=== PATIENT | male | born 1950 | race Caucasian/White ===

== ENCOUNTER 2019-11-29 06:29 | Observation (INO) ==
--- NOTE | 2019-11-23 08:56 | Anesthesiology Consultation ---
Date of Service November 23, 2019 Assessment & Plan (1) Encounter for pre-operative examination: - Per assessment on 11/08: Travel screen- Lives in [facility]/retired. [facility] travel for shopping. Uses PPE. No known COVID-19 positive contacts or current COVID-19 related symptoms. Surgeon arranging preop COVID testing. Awaiting results. - PCP office visit: 11/15/19: "Based on physical exam; pt is medically cleared; pending cardiology clearance." - Cardiology note: 11/09/19: "I have reviewed the clinical history, medication and relevant noninvasic testing. Based on these findings, I would consider patient to be moderate risk from a cardiac standpoint." - Preop labs not updated from 03/2019. Will order CBC, BMP, coags, BSG for AM DOS. Chart Review Chart Review: Acceptable Risk for Surgery (pending preop labs AM DOS) and Patient NOT seen in Pre Admission Testing History Surgery Operation Date: 11/29/19 12:45 Proposed Procedures p Left Total Knee Arthroplasty - Satya Peterson DO Height/Weight Height: 5 ft 10 in Weight: 102.512 kg Allergies Allergy/AdvReac Type Severity Reaction Status Date / Time No Known Allergies Allergy Verified 11/09/19 13:48 Medications Home Medications Medication Instructions Recorded Confirmed Last Taken aspirin [Aspir-81] 81 mg PO QAM 03/11/19 11/09/19 Unknown atorvastatin 80 mg PO HS 03/11/19 11/09/19 03/10/19 cholecalciferol (vitamin D3) 1,000 unit PO QAM 03/11/19 11/09/19 Unknown [Vitamin D3] cinnamon bark [Cinnamon] 1,000 mg PO QAM 03/11/19 11/09/19 Unknown lisinopril 2.5 mg PO QAM 03/11/19 11/09/19 03/11/19 metformin 1,000 mg PO BID 03/11/19 11/09/19 03/11/19 metoprolol tartrate 25 mg PO BID 03/11/19 11/09/19 03/11/19 omega 4-fpr-kmh-fish oil [Fish Oil] 1 cap PO HS 03/11/19 11/09/19 Unknown glyburide 2.5 - 5 mg PO BID 11/09/19 11/09/19 Unknown Past Medical History Medical History (Updated 11/23/19 @ 08:49 by Chana Hurtado) CAD (coronary artery disease) cardiac stents (2010- stents x 2, 2013- stent x 1), CABG X2 (2009) Diabetes NIDDM History of high cholesterol Hypothyroid no meds currently/under surveillance Obesity Osteoarthritis Past Family History Family History Mother Family history of lung cancer Past Surgical History Surgical History History of cardiac cath 2010= STENTS X 2 2012= STENT X1 2017= NO STENTS/MEDICAL MANAGEMENT History of cardiac cath 2012 2012 [facility] History of colonoscopy History of heart bypass surgery CABG X 2 (2009) History of hernia surgery DOUBLE HERNIA History of repair of left rotator cuff Social History Smoking Status: Never smoker Do You Dip or Chew Tobacco: No Hx Alcohol Use: Yes Alcohol type: beer alcohol intake frequency: holidays/special occasions only Hx Substance Use: No substance use type: does not use Testing Laboratory Results 03/22/19 HGBA1C 8.2% Electrocardiogram Date: 03/22/19 SR with first degree AVB at 75bpm. Otherwise "normal" ECG. Chest X-Ray Date: 03/22/19 Median sternotomy wires and mediastinal surgical clips. Cardiac silhouette elsy l in size. Lungs and pleural spaces clear. Degenerative changes of the thoracic spine. Diffuse the radiographic skeletal hyperostosis may be present. Surgical clip projects over the lower mediastinum or epigastrium. IMPRESSION: No acute cardiopulmonary disease. Echocardiogram Date: 07/08/16 LVEF 45-50%. Mild LAE. Grade I DD. No significant valvular disease. Stress Test Date: 03/29/18 Type: nuclear (Lexiscan) LVEF 59%. No evidence of stress induced ischemia. No fixed defects seen. Cardiac Catheterization Date: 08/01/16 angiographically significant 2 vessel occlusive CAD. patient grafts to LAD and diagonal arteries. LVEF 40%. "Given present coronary anatomy should be managed medically."
[~2019-11-29 06:29] MED LIST: ACETAMINOPHEN 500 MG TAB PO SCH; CEFAZOLIN 2000MG 2,000 MG/15 ML SYR IV SCH; CeleBREX 200 MG CAP PO SCH; FAMOTIDINE 20 MG TAB PO SCH; GABAPENTIN 300 MG CAP PO SCH; ROPIVACAINE 0.5% HCL/PF 150 MG, BUPIVACAINE 0.5% MPF 30 ML, EPINEPHrine 30MG/30ML (OR U... INSTIL SCH; TRANEXAMIC ACID 1,000 MG **IV Intra-op IV SCH; TRANEXAMIC ACID 1,000 MG **IV Pre-op IV SCH; dexAMETHasone 4 MG TAB PO SCH
[2019-11-29] MEDS ORDERED: MIDAZOLAM HCL 1 MG/ML 2ML VIAL ONE ×2 (06:31→07:14)
[2019-11-29] MEDS ORDERED: fentaNYL citrate 100 MCG/2 ML VIAL ONE ×2 (06:32→07:14)
[2019-11-29] MEDS ORDERED: ONDANSETRON INJ 2 MG/ML 2 ML VIAL IV PRN ×2 (07:13→10:43)
[2019-11-29] MEDS ORDERED: ePHEDrine sulfate 50 MG/ML AMP IV PRN (07:13)
[2019-11-29] MEDS ORDERED: fentaNYL citrate 100 MCG/2 ML VIAL IV PRN (07:13)
[2019-11-29] MEDS ORDERED: ATROPINE SULFATE 0.1 MG/ML 10ML SYR IV PRN (07:13)
[2019-11-29 07:15] LABS: Basophils # (auto) 0.04 K/uL (0-0.2); Basophils % (auto) 0.6 %; Eosinophils # (auto) 0.15 K/uL (0-0.5); Eosinophils % (auto) 2.4 %; Hemoglobin 15.4 g/dL (14.0-18.0); Lymphocytes # (auto) 1.83 K/uL (1.2-3.4); Lymphocytes % (auto) 29.7 %; Mean Corpuscular Hemoglobin 31.4 pg (25-34); Mean Corpuscular Volume 93.7 fL (80-100); Mean Platelet Volume 10.5 fL (7.4-10.4); Monocytes # (auto) 0.49 K/uL (0.11-0.59); Monocytes % (auto) 7.9 %; Neutrophils # (auto) 3.66 K/uL (1.4-6.5); Neutrophils % (auto) 59.4 %; Platelet Count 221 K/uL (130-400); RDW Standard Deviation 44.5 fL (36.4-46.3); Red Blood Count 4.91 M/uL (4.7-6.1); White Blood Count 6.17 K/uL (4.8-10.8)
[2019-11-29] MEDS ORDERED: BUPIVACAINE 0.5 % 5 MG/1 ML PF 10ML VIAL ONE (07:16)
[2019-11-29] MEDS ORDERED: ORTHO JOINT ANESTHETIC ONE (07:17)
[2019-11-29] MEDS ORDERED: BACITRACIN INJ 50,000 UNIT VIAL ONE (07:18)
[2019-11-29 07:23] LABS: INR 1.1 (0.9-1.1); Partial Thromboplastin Ratio 0.9; Partial Thromboplastin Time 25.9 Seconds (21.0-31.0); Prothrombin Time 11.7 Seconds (9.0-12.0)
--- NOTE | 2019-11-29 07:24 | History & Physical Bridge Note ---
Date of Service November 29, 2019 History & Physical Bridge Note I have examined the patient, reviewed the History & Physical and in the interval since the performance of the History & Physical I have noted the following changes of clinical significance: no changes noted
[2019-11-29 07:37] LABS: Mean Corpuscular Hgb Conc 33.5 g/dL (32-36)
[2019-11-29 07:42] LABS: BUN Creatinine Ratio 15.8 (10-20); Creatinine Clr Calc Pharmacy 94.3 ml/min; Est GFR (African American) 102.1; Est GFR (Non-African American) 88.1; Potassium 3.8 mmol/L (3.5-5.1)
--- NOTE | 2019-11-29 09:06 | Operative Report ---
Post Operative Report Pre & Post Diagnosis Operation Date: 11/29/19 09:15 Pre-Op Diagnosis: Unilateral Primary Osteoarthritis, Left Knee Post-Op Diagnosis: Unilateral Primary Osteoarthritis, Left Knee I identified the patient and participated in the time-out.: Yes Procedure Operation Date: 11/29/19 09:15 Actual Procedures p Left Total Knee Arthroplasty(Left)utilizing SN J2 Femur 7 tibia 6 poly 9 pat 35 - Satya Peterson DO Surgeon Satya Peterson DO Sexual Abuse Counsellor mihir COLLAZO Estimated Blood Loss 5 Findings Consistent with Post-Op Diagnosis subchondral scelrosis osteophytes effusion bone on bone Specimens bone and cartilage Drains medium hemovac Anesthesia Type MAC Spinal Regional Complications none Disposition Accompanied Patient To Recovery: No Disposition: Recovery Room Indications patient failed attempts at conservative management in jections rest act modification Description of Procedure After proper prepping and draping of the left lower extremity anterior midline incision was made over the region of the extensor extensor mechanism after meticulous hemostasis was obtained and maintained in subcutaneous tissues a medial parapatellar incision was made The patella was subluxed lateralward the medial lateral gutter were cleaned from any hypertrophic synovitis and scar tissue of the distal femoral block was placed and the distal femoral osteotomy cut was made subsequently the chamfers anterior and posterior osteotomy cuts were made utilizing the 4-in-1 block the tibia was subsequently subluxed anteriorward medial and ateral meniscal remnants were excised in their entirety remnants of the anterior and posterior cruciate ligaments were excised in their entirety excellent exposure of the proximal tibia was obtained the tibial osteotomy guide was placed on the proximal tibial osteotomy cut was made once again the knee was irrigated with copious amounts of sterile saline solution the patella was subsequently everted lateralward thickened scar tissue around the patella was removed the patella was subsequently cut utilizing a freehand technique and was drilled prepared for final preparation and placement of patella socially flexion-extension gaps were checked and the equal and symmetric trials were placed to the appropriate femoral and tibial trials with poly-spacer being placed for equal flexion and extension gaps and full range of motion including extension to 0 and flexion to 140 the trial components after having been taken to recovery range of motion was subsequently removed meticulous hemostasis was obtained and maintained subsequently a knee block injection of joint cocktail including ropivacaine 0.5% 150 mg. Bupivacaine 0.5% epinephrine 1-200,030 mL's toradol 30 mg dexamethasone 4 mg ketamine 10 mg clonidine 100 micrograms normal saline solution 30 mg was infiltrated into the soft tissues of the posterior knee medial lateral gutters and periosteal synovium special attention was paid to protect neurovascular structures at all times subsequently trial components having been removed the knee was irrigated with sterile saline solution. debris was removed the proximal tibia was subsequently prepared and was made ready for the placement of the tibial component tibial component was also cemented and tamped into position the femoral component was subsequently placed and cemented in the position the patellar component was subsequently cemented in position because hemostasis once again obtained and maintained wound having been thoroughly irrigated with debridement and debridement lavage was performed as well as a medial parapatellar incision closed with #1 Vicryl in interrupted fashion subcutaneous was closed with #2 Vicryl skin was closed with skin clips. PA-C was necessary for prepping and drapping as well as wound closure of deep fascia Sub cutaneous tissue and skin and was necessary for the case. A sterile compressive dressing was placed patient was taken to recovery in stable condition of report dictated by Nicholas I attest to the content of the Intraoperative Record and any orders documented therein. Any exceptions are noted below. I attest to the content of the Intraoperative Record and any orders documented therein. Any exceptions are noted below.
[2019-11-29] MEDS ORDERED: LIDOCAINE HCL 2% 2 ML VIAL/AMP(20MG/ML) INFIL ONE (09:43)
[2019-11-29] MEDS ORDERED: PROPOFOL IV EMULSION 10 MG/ML 20 ML VIAL IV ONE (09:43)
[2019-11-29] MEDS ORDERED: ONDANSETRON INJ 2 MG/ML 2 ML VIAL ONE (09:43)
--- NOTE | 2019-11-29 10:07 | XRay Report ---
TWO VIEWS LEFT KNEE CLINICAL HISTORY: Postoperative examination. FINDINGS: AP and crosstable lateral portable views of the left knee are obtained. A left knee arthrop lasty is in near anatomic alignment. There has been undersurface remodeling of the patella. No acute fracture is seen. There are expected postoperative changes around the knee including a surgical drain , soft tissue edema, and subcutaneous gas. IMPRESSION: Expected postoperative changes status post left knee arthroplasty. No acute fracture is s een. ACT 112: Negative or not required by law. Electronically signed by: Jonny Lucia M.D. 11/29/2019 10:05 AM
--- NOTE | 2019-11-29 10:25 | Anesthesiology Progress Note ---
Date of Service November 29, 2019 Anesthesia Post Procedure Vital Signs Vital Signs: Temp Pulse Pulse Resp BP Pulse Ox 11/29/19 10:15 97.5 F L 80 16 109/59 L 93 11/29/19 10:05 78 16 113/62 95 11/29/19 09:55 87 20 109/58 L 94 11/29/19 09:45 83 16 108/60 97 11/29/19 09:38 97.5 F L 80 12 116/59 L 96 11/29/19 06:57 97.9 F 61 18 121/75 98 Transfer of Care Handoff Completed per policy Notes Mental Status: alert / awake / arousable and participated in evaluation Patient Amnestic to Procedure: Yes Nausea / Vomiting: adequately controlled Pain: adequately controlled Airway Patency, RR, SpO2: stable & adequate BP & HR: stable & adequate Hydration State: stable & adequate Neuraxial Anesthesia: was administered and sensory block is resolving Anesthetic Complications: no major complications apparent and Pt Satisfied with anesthetic care
[2019-11-29] MEDS ORDERED: NALOXONE HCL 0.4 MG/1 ML VIAL/CARP IV PRN (10:43)
[2019-11-29] MEDS ORDERED: HYDROmorphone INJ 1 MG/ML SYRINGE IV PRN (10:43)
[2019-11-29] MEDS ORDERED: bisacodyL 10 MG SUPP PR PRN (10:43)
[2019-11-29] MEDS ORDERED: METOCLOPRAMIDE HCL INJ 5 MG/ML 2 ML VIAL IV PRN (10:43)
[2019-11-29] MEDS ORDERED: MAGNESIUM HYDROXIDE SUSP 30 ML UDC PO PRN (10:43)
[2019-11-29] MEDS ORDERED: PHARMACY GLYCEMIC MGMT CONSULT PRN (10:55)
[2019-11-29] MEDS: SODIUM CHLORIDE 0.9% 1000ML 1,000 ML IV SCH ×2 (10:55→20:36)
[2019-11-29] MEDS ORDERED: GLUCAGON FOR INJ 1 MG VIAL IM PRN (11:00)
[2019-11-29] MEDS ORDERED: CARBOHYDRATES FOR HYPOGLYCEMIA PO PRN (11:00)
[2019-11-29] MEDS ORDERED: DEXTROSE 50% 50 ML SYRINGE IV PRN (11:00)
[2019-11-29] MEDS ORDERED: GLUCOSE 40% GEL 15 GM TUBE PO PRN (11:00)
[2019-11-29] MEDS ORDERED: GLUCOSE 10 TABS/TUBE PO PRN (11:00)
--- NOTE | 2019-11-29 11:05 | Pharmacy Report ---
Glycemic Control Consultation - Date of Service November 29, 2019 - Scope Scope: Glycemic Pharmacist consulted for glycemic control and to write orders per [facility] inpatient glycemic control protocol. - Objective Weight: 99.79 kg Accuchecks BSG (last 24hrs): 11/29/19 11/29/19 11/29/19 07:00 07:00 09:45 Glucose 132 H POC Glucose 128 H 165 H Laboratory Data (last 24hrs): 11/29/19 07:00 Potassium 3.8 Carbon Dioxide 29 Anion Gap 5.0 Creatinine 0.90 Est Cr Clr Drug Dosing 94.3 - Recent Pertinent Medications Outpatient Anti-diabetic Regimen: * glyburide 5 mg Qam, 2.5 mg Qpm, metformin 1 gm bid * A1c = 7.6 % 10/2019 Risk Factors for Insulin Resistance: * Steroids: DXM preop 8 mg po * Recent Surgery: POD 0 * Diet: yes - Assessment & Plan Assessment & Plan: ASSESSMENT: * 69 year old male now s/p L TKA - POD 0. PMHx significant for CAD, hypothyroidism, type 2 diabetes. Received preop steroids therefore anticipate steroid induced hyperglycemia * Pharmacy consulted for glycemic management, plan to utilize basal/bolus insulin post-op for BSG control PLAN FOR INPATIENT GLYCEMIC CONTROL: * Holding outpatient oral diabetes medications * Basal insulin * NPH 20 units x 1 (~0.2 units/kg) - to help cover steroids * Bolus insulin * NovoLog per scale ACHS or Q6hrs while NPO * Goal Range: Low 110 mg/dL - High 140 mg/dL * Correction Factor: 20 mg/dL/unit * Nutritional / Prandial insulin per carb ratio of 1 unit per 7 grams CHO consumed * Please note that the plan above was derived based on current level of insulin resistance and hospital stress. These recommendations are appropriate for inpatient admission only. Plan of care upon discharge will need to be reassessed to avoid potential outpatient hypo/hyperglycemia. Thank you.
[2019-11-29] MEDS: KETOROLAC TROMETHAMINE 15 MG/ML VIAL IV SCH ×2 (11:21→17:00)
--- NOTE | 2019-11-29 11:52 | Hospitalist Consultation ---
Date of Consultation November 29, 2019 Assessment & Plan (1) Status post left knee replacement: Routine postop and pain management per orthopedics (2) CAD (coronary artery disease): Status post CABG x2 2009, 2010= STENTS X 2, 2013= STENT X1, 2017= Patent grafts to LAD, diagonal patent stents s in left main and circumflex and nonobstructive RCA, nuclear stress test March 2018 LVEF 59%. No evidence of stress-induced ischemia. No fixed defect seen. Cleared by outpatient baby formula mixer Dr. Staton - "moderate risk from cardiac standpoint". Continue aspirin, metoprolol tartrate 25 mg p.o. twice daily, lisinopril 2.5 mg p.o. every morning, atorvastatin 80 mg p.o. at bedtime. (3) Diabetes: Hold metformin and glyburide Pharmacy consulted by orthopedics for insulin management with dose of NPH given due to dexamethasone HbA1c 7.6 Oct, 2019 (4) Hypertension: Continue metoprolol tartrate and lisinopril with hold parameters (5) Hyperlipidemia: Continue atorvastatin p.o. at bedtime (6) DVT prophylaxis: Deferred to primary orthopedic team History of Present Illness Reason for Consultation: Type 2 diabetes, hypertension, coronary artery disease postop management Attending Physician: Satya Peterson, History of Present Illness Gideon Ward is a 69-year-old male here for elective left total knee arthroplasty due to osteoarthritis. This was performed earlier today by Dr. Peterson. Patient doing well postoperatively no concerns or questions at this time. Noted last cardiology appointment patient was having dizziness. Chest pains and shortness of breath on exertion was at his baseline. Dizziness was worked up with carotid duplex and 24-hour EKG which the patient reports was normal. Last echocardiogram in August with LVEF 50%. Normal contractility of the wall segments. Last myocardial perfusion scan in March 2018 with no evidence of stress-induced ischemia or fixed defects at that time. Mr. Ward notes the main thing is been slowing down recently as his left knee hence his operation today. Allergies Allergy/AdvReac Type Severity Reaction Status Date / Time No Known Allergies Allergy Verified 11/29/19 06:54 Home Medications Home Medications Medication Instructions Recorded Confirmed Type aspirin [Aspir-81] 81 mg PO QAM 03/11/19 11/29/19 History atorvastatin 80 mg PO HS 03/11/19 11/29/19 History cholecalciferol (vitamin D3) 1,000 unit PO QAM 03/11/19 11/29/19 History [Vitamin D3] cinnamon bark [Cinnamon] 1,000 mg PO QAM 03/11/19 11/29/19 History lisinopril 2.5 mg PO QAM 03/11/19 11/29/19 History metformin 1,000 mg PO BID 03/11/19 11/29/19 History metoprolol tartrate 25 mg PO BID 03/11/19 11/29/19 History omega 8-isz-ezq-fish oil [Fish Oil] 1 cap PO HS 03/11/19 11/29/19 History glyburide 2.5 - 5 mg PO BID 11/09/19 11/29/19 History Patient History Medical History CAD (coronary artery disease) cardiac stents (2010- stents x 2, 2012- stent x 1), CABG X2 (2009) Diabetes NIDDM History of high cholesterol Hyperlipidemia Hypertension Hypothyroid no meds currently/under surveillance Obesity Osteoarthritis Surgical History History of cardiac cath 2010= STENTS X 2 2012= STENT X1 2017= NO STENTS/MEDICAL MANAGEMENT History of cardiac cath 2012 2012 [facility] History of colonoscopy History of heart bypass surgery CABG X 2 (2009) History of hernia surgery DOUBLE HERNIA History of repair of left rotator cuff Family History Mother Family history of lung cancer Social History Smoking Status: Never smoker Second Hand Exposure: Yes (MOTHER SMOKED); Do You Dip or Chew Tobacco: No; Hx Alcohol Use: Yes Alcohol type: beer Hx Substance Use: No Preferred Language: Welsh Communication Ability: Effective [employer] Internship Required: No Beliefs That Will Affect Care: None marital status: Current Living Situation: Spouse and Family Current Living Situation Comment: , DAUGHTERS AND GRANDSON Other Information That Helps Us Care for You: No Feels Safe at Home: Yes Safety Concerns: Feels Safe At This Time Review of Systems Review of Systems: All systems reviewed & are unremarkable except as noted in HPI & below Physical Exam Constitutional: WD/WN, vitals as above + obese Eyes: + anicteric sclerae; normal pupil size ENMT: external ear and nose normal, oropharynx normal Neck: trachea midline, no thyromegaly Respiratory: normal respiratory effort, lungs clear to auscultation Cardiovascular: RRR, no murmur, no edema Gastrointestinal (Abdomen): normal bowel sounds, soft, nontender, no hepatosplenomegaly Skin: no rashes, warm and dry Neurologic: moves all extremities (Left lower extremity not examined due to operation today) and awake; not confused Motor/Sensory: + sensory deficit (Left toes still numb from femoral block) Psychiatric: A+Ox3, euthymic affect Results & Data Results & Data ([facility]) Vital Signs (Past 12 Hours) Vital Signs Temp Pulse Pulse Resp BP Pulse Ox 11/29/19 11:36 76 16 110/68 98 11/29/19 11:05 36.4 C L 80 18 111/68 99 11/29/19 10:35 36.4 C L 79 18 104/70 98 11/29/19 10:20 78 16 111/59 L 95 11/29/19 10:15 36.4 C L 80 16 109/59 L 93 11/29/19 10:05 78 16 113/62 95 11/29/19 09:55 87 20 109/58 L 94 11/29/19 09:45 83 16 108/60 97 11/29/19 09:38 36.4 C L 80 12 116/59 L 96 11/29/19 06:57 36.6 C 61 18 121/75 98 PG Care Time/CCT Total # of Minutes Spent Total Time Spent with Patient: Total time spent is greater than 50% in coordination of care (as documented) at patient's floor/unit and/or counseling patient: Coding Level of Care Code 38909 Office/OBS Consult Lvl 3 Diagnoses Status post left knee replacement Z96.652 CAD (coronary artery disease) I25.10 Diabetes E11.9 Hypertension I10 Hyperlipidemia E78.5 DVT prophylaxis Z29.9
[2019-11-29] MEDS ORDERED: NovoLIN-N (NPH) PER UNIT CHARGE SQ ONE (12:00)
[2019-11-29] MEDS: ACETAMINOPHEN 500 MG TAB PO SCH ×2 (12:31→21:42)
[2019-11-29] MEDS: INSULIN ASPART 100 UNITS/ML 3 ML PEN SC SCH ×3 (12:32→21:45)
[2019-11-29] MEDS: CEFAZOLIN 2000MG 2,000 MG/15 ML SYR IV SCH (16:56)
[2019-11-29] MEDS: ATORVASTATIN 40 MG TAB PO SCH (21:42)
[2019-11-29] MEDS: ASPIRIN 81 MG ECTAB PO SCH (21:42)
[2019-11-29] MEDS: METOPROLOL TARTRATE 25 MG TAB PO SCH (21:43)
[2019-11-29] MEDS: DOCUSATE SODIUM 100 MG CAP PO SCH (21:43)
[2019-11-29] MEDS: SENNA 8.6 MG TAB PO SCH (21:43)
[2019-11-29] MEDS: OXYCODONE HCL IR 5 MG TAB (IMMEDIATE RELEASE) PO PRN (21:55)
[2019-11-30] MEDS ORDERED: INSULIN ASPART 100 UNITS/ML 3 ML PEN SC SCH
[2019-11-30] MEDS: CEFAZOLIN 2000MG 2,000 MG/15 ML SYR IV SCH (00:27)
[2019-11-30] MEDS: KETOROLAC TROMETHAMINE 15 MG/ML VIAL IV SCH ×2 (00:27→06:06)
[2019-11-30] MEDS: ACETAMINOPHEN 500 MG TAB PO SCH ×3 (06:06→22:06)
[2019-11-30 06:12] LABS: Hematocrit (blood only) 36.8 % (42-52); Hemoglobin 12.2 g/dL (14.0-18.0); Mean Corpuscular Hemoglobin 30.5 pg (25-34); Mean Corpuscular Hgb Conc 33.2 g/dL (32-36); Mean Platelet Volume 10.4 fL (7.4-10.4); Platelet Count 189 K/uL (130-400); RDW Coefficient of Variation 12.6 % (11.5-14.5); White Blood Count 9.99 K/uL (4.8-10.8)
[2019-11-30 06:50] LABS: BUN Creatinine Ratio 22.3 (10-20); Calcium 8.2 mg/dl (8.5-10.1); Creatinine Clr Calc Pharmacy 90.3 ml/min; Est GFR (African American) 96.8; Est GFR (Non-African American) 83.6; Potassium 4.5 mmol/L (3.5-5.1)
--- NOTE | 2019-11-30 07:31 | Orthopedic Progress Note ---
Date of Service November 30, 2019 Assessment & Plan (1) Status post left knee replacement: POD #1 s/p Left TKA pt/ot dvt proph with GODFREY/SCD/ASA plan for d/c home with HHPT, likely on Admission and Anticipated Discharge Date Admission Date: November 29, 2019 Subjective POD #1 s/p Left TKA Review of Systems Constitutional: no fever, no chills and no sweats Respiratory: no cough and no dyspnea Cardiovascular: no chest pain and no dyspnea Gastrointestinal: no abdominal pain, no nausea and no vomiting Physical Exam Physical Exam: Vital Signs Temp 36.5 C 11/30/19 03:33 Pulse 72 11/30/19 03:33 Resp 18 11/30/19 03:33 BP 112/55 L 11/30/19 03:33 Pulse Ox 98 11/30/19 03:33 Intake & Output 11/29/19 11/30/19 11/30/19 18:59 06:59 18:59 Intake Total 1750 / 4518.333 2768.333 / 4518.33 3 Output Total 920 / 1245 325 / 1245 Balance 830 / 3273.333 2443.333 / 3273.33 3 Weight 99.79 kg Intake: IV 200 / 2168.333 1968.333 / 2168.33 3 Nss 1000ML 1,0 00 ml @ 100 mls/ 1968.333 / 1968.33 3 hr IV .Q10H SC H Rx#:[id number] TRANEXAMIC ACI D / 0.7% NACL 1, 200 / 200 000 mg In 100 ml @ 600 mls/hr IV TODAY@0600 [facility] Rx#:[id number] IV Perioperative 1550 / 1550 Oral 800 / 800 Output: Urine 650 / 650 Estimated Blood Loss 5 / 5 Drain Output 265 / 590 325 / 590 Left Knee Hemo vac 265 / 590 325 / 590 Other: # Unmeasured Voi ds 1 Constitutional: WD/WN, vitals as above no acute distress Musculoskeletal: Left Leg: NVDI, calf SNT, negative fabian sign. DP palpable, able to wiggle toes/ankle movement without difficulty. dressing clean dry and intact. Results & Data ([facility]) Vital Signs (Past 12 Hours) Vital Signs Temp Pulse Resp BP Pulse Ox 11/30/19 03:33 36.5 C 72 18 112/55 L 98 11/29/19 23:14 36.6 C 70 18 113/67 96 11/29/19 21:41 69 111/59 L Laboratory Results Laboratory Results WBC 9.99 K/uL (4.8-10.8) 11/30/19 05:50 RBC 4.00 M/uL (4.7-6.1) L 11/30/19 05:50 Hgb 12.2 g/dL (14.0-18.0) L D 11/30/19 05:50 Hct 36.8 % (42-52) L 11/30/19 05:50 MCV 92.0 fL (80-100) 11/30/19 05:50 MCH 30.5 pg (25-34) 11/30/19 05:50 MCHC 33.2 g/dL (32-36) 11/30/19 05:50 RDW Std Deviation 43.0 fL (36.4-46.3) 11/30/19 05:50 RDW Coeff of Claudine 12.6 % (11.5-14.5) 11/30/19 05:50 Plt Count 189 K/uL (130-400) 11/30/19 05:50 MPV 10.4 fL (7.4-10.4) 11/30/19 05:50 Immature Gran % (Auto) 0.0 % 11/29/19 07:00 Neut % (Auto) 59.4 % 11/29/19 07:00 Lymph % (Auto) 29.7 % 11/29/19 07:00 Schleicher % (Auto) 7.9 % 11/29/19 07:00 Eos % (Auto) 2.4 % 11/29/19 07:00 Baso % (Auto) 0.6 % 11/29/19 07:00 Neut # (Auto) 3.66 K/uL (1.4-6.5) 11/29/19 07:00 Lymph # (Auto) 1.83 K/uL (1.2-3.4) 11/29/19 07:00 Schleicher # (Auto) 0.49 K/uL (0.11-0.59) 11/29/19 07:00 Eos # (Auto) 0.15 K/uL (0-0.5) 11/29/19 07:00 Baso # (Auto) 0.04 K/uL (0-0.2) 11/29/19 07:00 Immature Gran # (Auto) 0.00 K/uL (0.00-0.02) 11/29/19 07:00 PT 11.7 Seconds (9.0-12.0) 11/29/19 07:00 INR 1.1 (0.9-1.1) 11/29/19 07:00 APTT 25.9 Seconds (21.0-31.0) 11/29/19 07:00 PTT Ratio 0.9 11/29/19 07:00 Sodium 138 mmol/L (136-145) 11/30/19 05:50 Potassium 4.5 mmol/L (3.5-5.1) D 11/30/19 05:50 Chloride 108 mmol/L (98-107) H 11/30/19 05:50 Carbon Dioxide 25 mmol/L (21-32) 11/30/19 05:50 Anion Gap 5.0 (3-11) 11/30/19 05:50 BUN 21 mg/dl (7-18) H 11/30/19 05:50 Creatinine 0.94 mg/dl (0.6-1.4) 11/30/19 05:50 Est Cr Clr Drug Dosing 90.3 ml/min 11/30/19 05:50 Est GFR ( Amer) 96.8 11/30/19 05:50 Est GFR (Non-Af Amer) 83.6 11/30/19 05:50 BUN/Creatinine Ratio 22.3 (10-20) H 11/30/19 05:50 Glucose 162 mg/dl (70-99) H 11/30/19 05:50 POC Glucose 176 mg/dl (70-99) H 11/30/19 00:41 Calcium 8.2 mg/dl (8.5-10.1) L 11/30/19 05:50 Blood Type A Positive 11/29/19 07:00 Antibody Screen NEGATIVE 11/29/19 07:00 Diagnostic Findings TWO VIEWS LEFT KNEE CLINICAL HISTORY: Postoperative examination. FINDINGS: AP and crosstable lateral portable views of the left knee are obtained. A left knee arthroplasty is in near anatomic alignment. There has been undersurface remodeling of the patella. No acute fracture is seen. There are expected postoperative changes around the knee including a surgical drain, soft tissue edema, and subcutaneous gas. IMPRESSION: Expected postoperative changes status post left knee arthroplasty. No acute fracture is seen.
[2019-11-30] MEDS: CHOLECALCIFEROL 1,000 UNITS 25 MCG TAB PO SCH (08:15)
[2019-11-30] MEDS: METOPROLOL TARTRATE 25 MG TAB PO SCH ×2 (08:15→22:05)
[2019-11-30] MEDS: OXYCODONE HCL IR 5 MG TAB (IMMEDIATE RELEASE) PO PRN ×3 (08:15→20:49)
[2019-11-30] MEDS: DOCUSATE SODIUM 100 MG CAP PO SCH ×2 (08:15→22:05)
[2019-11-30] MEDS: MULTIVITAMIN TAB PO SCH (08:16)
[2019-11-30] MEDS: CeleBREX 200 MG CAP PO SCH ×2 (08:16→22:05)
[2019-11-30] MEDS: ASPIRIN 81 MG ECTAB PO SCH ×2 (08:16→22:05)
[2019-11-30] MEDS: INSULIN ASPART 100 UNITS/ML 3 ML PEN SC SCH ×4 (08:46→22:04)
--- NOTE | 2019-11-30 10:37 | Pharmacy Report ---
Pharmacy Glycemic Short Note 2 - Date of Service November 30, 2019 - Glycemic Short BSG Results (Last 24 hours): 11/29/19 11/29/19 11/29/19 11:05 17:20 21:14 Glucose POC Glucose 158 H 214 H 237 H 11/30/19 11/30/19 11/30/19 00:41 05:50 08:12 Glucose 162 H POC Glucose 176 H 168 H ASSESSMENT: 11/29: * Patient received total of 46 units of insulin yesterday, of which 20 were basal insulin to cover steroids * Fasting BSG 162 mg/dL - may add scale for basal at HS if BSGs elevated * Tightened CR slightly this AM as BSGs trending up quickly yesterday with diet / may need to loosen later once steroids wear off PLAN FOR INPATIENT GLYCEMIC CONTROL: * Resume home metformin at dinner * Basal insulin * Lantus 0-10 units HS depending on BSG value * Bolus insulin * NovoLog per scale ACHS or Q6hrs while NPO * Goal Range: Low 110 mg/dL - High 140 mg/dL * Correction Factor: 20 mg/dL/unit * Nutritional / Prandial insulin per carb ratio of 1 unit per 6 grams CHO consumed * Please note that the plan above was derived based on current level of insulin resistance and hospital stress. These recommendations are appropriate for inpatient admission only. Plan of care upon discharge will need to be reassessed to avoid potential outpatient hypo/hyperglycemia. Thank you. PLAN FOR DISCHARGE: * A1C 7.6% - goal 7% reasonable * A1C close to goal, could continue home diabetic agents on discharge as long as patient is not reporting hypoglycemia * Would encourage healthy lifestyle (diet, exercise) and continued self mo nitoring of blood sugars
--- NOTE | 2019-11-30 12:10 | Hospitalist Progress Note ---
Date of Service November 30, 2019 Assessment & Plan (1) Status post left knee replacement: Routine postop and pain management per orthopedics (2) CAD (coronary artery disease): Status post CABG x2 2009, 2010= STENTS X 2, 2013= STENT X1, 2017= Patent grafts to LAD, diagonal patent stents s in left main and circumflex and nonobstructive RCA, nuclear stress test March 2018 LVEF 59%. No evidence of stress-induced ischemia. No fixed defect seen. Cleared by outpatient associate professor of pathology Dr. Staton - "moderate risk from cardiac standpoint". Continue aspirin, metoprolol tartrate 25 mg p.o. twice daily, lisinopril 2.5 mg p.o. every morning, atorvastatin 80 mg p.o. at bedtime. (3) Diabetes: Hold metformin and glyburide Pharmacy consulted by orthopedics for insulin management with 1 of dose NPH given due to dexamethasone HbA1c 7.6 Oct, 2019 (4) Hypertension: Continue metoprolol tartrate and lisinopril with hold parameters (5) Hyperlipidemia: Continue atorvastatin p.o. at bedtime (6) Blood loss anemia: Hgb down 3g post op. Patient not experiencing symptoms. Continue to monitor (7) DVT prophylaxis: Deferred to primary orthopedic team Medicine will sign off at this time. Please call with any questions or concerns Admission and Anticipated Discharge Date Admission Date: November 29, 2019 Subjective Mr. Ward is feeling well this morning, he has no complaints. ROS Constitutional: no chills, aches, sweats or fever Respiratory: no sob,cough, sputum, or wheezing Cardiac: no chest pain, palpitations, edema, orthopnea or lightheadedness GI: no abdominal pain, nausea, vomiting, diarrhea or constipation : no dysuria or hesitancy Extremities: no joint pain or weakness Skin: no rash All other systems reviewed and negative Physical Exam Physical Exam: General: no distress Eyes: normal inspection, PERLL Respiratory: chest non tender, clear to auscultation, normal breath sounds, no respiratory distress, no accessory muscle use Cardiac: regular rate and rhythm, no rub or gallop, no murmur, no edema, no jvd GI/: active bowel sounds, no abd pain or tenderness, soft, non distended Extremities: normal range of motion, normal strength, non tender Neuro/Psych: alert and oriented x 3, normal mood and affect Skin: normal color, dry Results & Data Results & Data ([facility]) Vital Signs (Past 12 Hours) Vital Signs Temp Pulse Resp BP Pulse Ox 11/30/19 12:00 36.7 C 63 16 96/56 L 94 11/30/19 07:48 36.4 C L 62 16 114/69 99 11/30/19 03:33 36.5 C 72 18 112/55 L 98 PG Care Time/CCT Total # of Minutes Spent Total Time Spent with Patient: Total time spent is greater than 50% in coordination of care (as documented) at patient's floor/unit and/or counseling patient: Coding Level of Care Code 05200 Subseq Hosp Care Lvl 2 Diagnoses Status post left knee replacement Z96.652 CAD (coronary artery disease) I25.10 Diabetes E11.9 Hypertension I10 Hyperlipidemia E78.5 Blood loss anemia D50.0 DVT prophylaxis Z29.9
[2019-11-30] MEDS ORDERED: LANTUS PER UNIT CHARGE SQ SCH ×2 (18:00→21:00)
[2019-11-30] MEDS: METFORMIN HCL 500 MG TAB PO SCH (18:15)
[2019-11-30] MEDS: ATORVASTATIN 40 MG TAB PO SCH (22:05)
[2019-11-30] MEDS: SENNA 8.6 MG TAB PO SCH (22:05)
[2019-12-01] MEDS: OXYCODONE HCL IR 5 MG TAB (IMMEDIATE RELEASE) PO PRN ×2 (05:20→11:17)
[2019-12-01] MEDS: ACETAMINOPHEN 500 MG TAB PO SCH (05:22)
[2019-12-01] MEDS: METOPROLOL TARTRATE 25 MG TAB PO SCH (08:56)
[2019-12-01] MEDS: METFORMIN HCL 500 MG TAB PO SCH (08:56)
[2019-12-01] MEDS: ASPIRIN 81 MG ECTAB PO SCH (08:56)
[2019-12-01] MEDS: CHOLECALCIFEROL 1,000 UNITS 25 MCG TAB PO SCH (08:56)
[2019-12-01] MEDS: CeleBREX 200 MG CAP PO SCH (08:56)
[2019-12-01] MEDS: DOCUSATE SODIUM 100 MG CAP PO SCH (08:56)
[2019-12-01] MEDS: MULTIVITAMIN TAB PO SCH (08:56)
[2019-12-01] MEDS: INSULIN ASPART 100 UNITS/ML 3 ML PEN SC SCH (08:58)
--- NOTE | 2019-12-01 09:13 | Orthopedic Progress Note ---
Date of Service December 01, 2019 Assessment & Plan (1) Status post left knee replacement: POD #2 s/p Left TKA pt/ot dvt proph with GODFREY/SCD/ASA plan for d/c home with HHPT, likely on today Admission and Anticipated Discharge Date Admission Date: November 29, 2019 Subjective POD#2 TKA. Patient is doing well, pain well controlled. Denies complaints. No chest pain, sob, n/v/d. Review of Systems Review of Systems: All systems reviewed & are unremarkable except as noted in HPI & below Physical Exam Physical Exam: Left knee: Dressing is c/d/i, incision c/d/i. No calf tenderness. Toes mobile with good dorsiflexion. Distally n/v status and sensation intact. Constitutional: well developed and well nourished; no acute distress Results & Data ([facility]) Vital Signs (Past 12 Hours) Vital Signs Temp Pulse Pulse Resp BP Pulse Ox 12/01/19 07:49 36.6 C 67 16 104/61 98 12/01/19 06:30 61 16 108/65 97 12/01/19 05:52 48 L 57 L 113/67 12/01/19 05:31 36.6 C 57 L 15 102/65 99 11/30/19 22:52 36.5 C 59 L 16 105/59 L 100
--- NOTE | 2019-12-01 10:50 | Discharge Summary ---
Date of Service date of admission: November 29, 2019 date of discharge: 12-01-19 Admission HPI Per Admitting Provider Gideon is a 68 year old male who complains of left knee pain, presents for pre- op evaluation prior to a left total knee replacement by dr Peterson at [facility]. He complains of pain, decreased range of motion, instability and stiffness in his left knee, he states that the symptoms have been chronic and non-traumatic. Currently the patient states that the symptoms are moderate-severe. The pain is described as aching, sharp and throbbing. The symptoms occur continuously. The symptoms are aggravated by ascending stairs, daily activities, first steps while awake walking. Prior NSAIDs include IBU and Aleve. He has been treated with previous Visco injections in the past without much relief. At this point, his pain is affecting his activities of daily living and would like to proceed with a left total knee replacement. Principal Diagnosis left knee arthritis Discharge Exam Vital Signs Temp 36.6 C 12/01/19 09:54 Pulse 61 12/01/19 09:54 Resp 16 12/01/19 09:54 BP 104/61 12/01/19 09:54 Pulse Ox 98 12/01/19 09:54 Intake & Output 11/30/19 12/01/19 12/01/19 18:59 06:59 18:59 Intake Total 1210 / 1210 Output Total 75 / 340 265 / 340 Balance -75 / 870 945 / 870 Weight 99.79 kg Intake: Oral 1210 / 1210 Output: Drain Output 75 / 340 265 / 340 Left Knee Hemovac 75 / 340 265 / 340 Constitutional WD/WN, vitals as above no acute distress Musculoskeletal left knee: NVDI, calf SNT, negative fabian sign. DP palpable, able to wiggle toes/ankle movement without difficulty. Prineo dressing clean dry and intact. expected post-operative bruising noted. Discharge Data Allergies Allergy/AdvReac Type Severity Reaction Status Date / Time No Known Allergies Allergy Verified 11/29/19 06:54 Consultations 11/29/19 10:43 Consult Case Management - Discharge Planning Routine Consult Hospitalist Routine Procedures Performed Operation Date: 11/29/19 09:15 Actual Procedures p Left Total Knee Arthroplasty(Left) - Satya Peterson DO Ordered Studies 11/29/19 05:00 US guide needle placement Routine US guide needle placement Routine Hospital Course (1) Status post left knee replacement: POD #2 s/p Left TKA pt/ot dvt proph with GODFREY/SCD/ASA plan for d/c home with HHPT Laboratory Results WBC 9.99 K/uL (4.8-10.8) 11/30/19 05:50 RBC 4.00 M/uL (4.7-6.1) L 11/30/19 05:50 Hgb 12.2 g/dL (14.0-18.0) L D 11/30/19 05:50 Hct 36.8 % (42-52) L 11/30/19 05:50 MCV 92.0 fL (80-100) 11/30/19 05:50 MCH 30.5 pg (25-34) 11/30/19 05:50 MCHC 33.2 g/dL (32-36) 11/30/19 05:50 RDW Std Deviation 43.0 fL (36.4-46.3) 11/30/19 05:50 RDW Coeff of Claudine 12.6 % (11.5-14.5) 11/30/19 05:50 Plt Count 189 K/uL (130-400) 11/30/19 05:50 MPV 10.4 fL (7.4-10.4) 11/30/19 05:50 Immature Gran % (Auto) 0.0 % 11/29/19 07:00 Neut % (Auto) 59.4 % 11/29/19 07:00 Lymph % (Auto) 29.7 % 11/29/19 07:00 Piute % (Auto) 7.9 % 11/29/19 07:00 Eos % (Auto) 2.4 % 11/29/19 07:00 Baso % (Auto) 0.6 % 11/29/19 07:00 Neut # (Auto) 3.66 K/uL (1.4-6.5) 11/29/19 07:00 Lymph # (Auto) 1.83 K/uL (1.2-3.4) 11/29/19 07:00 Piute # (Auto) 0.49 K/uL (0.11-0.59) 11/29/19 07:00 Eos # (Auto) 0.15 K/uL (0-0.5) 11/29/19 07:00 Baso # (Auto) 0.04 K/uL (0-0.2) 11/29/19 07:00 Immature Gran # (Auto) 0.00 K/uL (0.00-0.02) 11/29/19 07:00 PT 11.7 Seconds (9.0-12.0) 11/29/19 07:00 INR 1.1 (0.9-1.1) 11/29/19 07:00 APTT 25.9 Seconds (21.0-31.0) 11/29/19 07:00 PTT Ratio 0.9 11/29/19 07:00 Sodium 138 mmol/L (136-145) 11/30/19 05:50 Potassium 4.5 mmol/L (3.5-5.1) D 11/30/19 05:50 Chloride 108 mmol/L (98-107) H 11/30/19 05:50 Carbon Dioxide 25 mmol/L (21-32) 11/30/19 05:50 Anion Gap 5.0 (3-11) 11/30/19 05:50 BUN 21 mg/dl (7-18) H 11/30/19 05:50 Creatinine 0.94 mg/dl (0.6-1.4) 11/30/19 05:50 Est Cr Clr Drug Dosing 90.3 ml/min 11/30/19 05:50 Est GFR ( Amer) 96.8 11/30/19 05:50 Est GFR (Non-Af Amer) 83.6 11/30/19 05:50 BUN/Creatinine Ratio 22.3 (10-20) H 11/30/19 05:50 Glucose 162 mg/dl (70-99) H 11/30/19 05:50 POC Glucose 257 mg/dl (70-99) H 12/01/19 08:24 Calcium 8.2 mg/dl (8.5-10.1) L 11/30/19 05:50 Blood Type A Positive 11/29/19 07:00 Antibody Screen NEGATIVE 11/29/19 07:00 Total Time Total Time Spent Total Time Spent (In Minutes): 20 Total Time Includes: Examination of the Patient, Discharge Planning and Medication Reconciliation Discharge Plan Discharge Items Patient Disposition: Home - Home Health Services Reason For Visit: Unilateral Primary Osteoarthritis, Left Knee Discharge Diagnosis: left total knee replacement Activity: Per Instructions section Lifting: Wait until after follow-up appointment Exercise/Sports: Wait until after follow-up appointment Weightbearing Comment: WBAT with walker Non-emergency contact: Surgeon Call non-emergency contact if: you have any medication questions, your pain is not controlled, your temperature is above 101, your wound has increased redness, your wound has increased drainage and your wound pain has increased Follow-up/Referrals: Maricruz Hernadez CRNP [Primary Care Provider] - Diet: Carb Consistent or DM2 Addtl Attending Provider Instructions: ACTIVITY RECOMMENDATIONS: SELF CARE INSTRUCTIONS AFTER TOTAL KNEE REPLACEMENT A. You may need to continue a physical therapy program after discharge from the hospital. There are several options available to you. Your doctor will assist you in selecting the best one for you. 1. An out-patient facility 2 to 3 times a week for therapy or home therapy. 2. Continue working on all exercises taught to you in the hospital. Your goals should be to increase bending of your knee to 90 degrees and beyond and to fully straighten your knee. B. You may progress at your own pace from walking with a walker or crutches to a cane; then to no assistive devices. C. Make walking a part of your daily routine. Be up as much as comfortable with rest periods throughout the day. Rest with leg elevation is very important. Use the ice wrap frequently for the first 3-4 weeks. D. There are no restrictions on activities. You may ride in a car, shop, participate in carbon paper coating machine setter and all social activities. E. Wear the long elastic stockings (GODFREY hose) 20 hours a day for 2 weeks after surgery. They can be removed several times a day for laundering and for a bath. F. You may shower, no tub baths until cleared by your doctor. SPECIAL CARE INSTRUCTIONS: VERY IMPORTANT TO READ AND REVIEW A. There are a few signs you need to watch for after you are home. Call [facility] if you notice any of the followin. Increased severe knee pain. Some pain is expected especially when you exercise. 2. Increased swelling in your leg or knee; pain or swelling of the calf muscle in either lower leg. 3. Any fluid drainage from the incision. 4. Shortness of breath or chest pain. B. Please call [facility] at if you have any concerns or questions about your operation or recovery. The doctor or his nurse will return your call promptly. C. You must take antibiotics before dental work, bladder, bowel or other surgery. Your doctor will provide you with a permanent care to carry describing this precaution. IMPORTANT: * REMEMBER TO TAKE ASPIRIN, 81 MG, TWICE DAILY FOR 4 WEEKS UNLESS OTHERWISE DIRECTED. THIS IS YOUR BLOOD THINNER. * HIGH RISK PATIENTS MAY BE PRESCRIBED A STRONGER BLOOD THINNER. THIS WILL BE PROVIDED AT DISCHARGE. * CALL IF INCREASED PAIN, REDNESS, DRAINAGE OR FEVER GREATER THAT 101. * WEAR GODFREY HOSE 20 HOURS PER DAY FOR 2 WEEKS. * DERMABOND Prineo- This is a mesh tape dressing that is covered with glue. It should remain in place until the incision is properly healed, usually 10-14 days. This dressing is designed to naturally slough off. You may trim the excess mesh tape as it peels off. Incision may be briefly wet in a shower. Dry immediately by blotting with a clean, dry towel. Do not bath or swim until instructed by your doctor. Do not scratch, rub, or pick at the dressing. Do not apply any topical ointments or lotions until dressing is completely removed and/or instructed by your doctor. There may be a small piece of suture material at one end of your incision. Do not pull or trim this. If it is bothersome or catching on clothing, you may cover it with a band-aid. IF INCISION IS LEAKING THROUGH DRESSING, CALL THE OFFICE . FOLLOW UP VISIT: If appointment is not already scheduled: Please call [facility] to make a follow-up appointment for 2 weeks after your surgery at . Pending Studies at Discharge: No Stand-Alone Forms: [facility], Opioid Pain Management, Smoking Cessation Medications and DC Order Prescriptions: New celecoxib [Celebrex] 200 mg Capsule 200 mg PO BID Qty: 60 RF: 0 aspirin 81 mg Tablet,Delayed Release (Dr/Ec) 81 mg PO BID Qty: 60 RF: 0 acetaminophen 500 mg Tablet 1,000 mg PO Q8 Qty: 60 RF: 0 oxycodone 5 mg Tablet 5 - 10 mg PO .Q4h-6h MDD 6 PRN (Reason: pain) Qty: 30 RF: 0 cefadroxil 500 mg capsule 500 mg PO BID Qty: 14 RF: 0 Continued atorvastatin 80 mg Tablet 80 mg PO HS RF: 0 metformin 1,000 mg Tablet 1,000 mg PO BID RF: 0 lisinopril 2.5 mg Tablet 2.5 mg PO QAM RF: 0 metoprolol tartrate 25 mg Tablet 25 mg PO BID RF: 0 cinnamon bark [Cinnamon] 500 mg Capsule 1,000 mg PO QAM RF: 0 cholecalciferol (vitamin D3) [Vitamin D3] 1,000 unit Tablet,Chewable 1,000 unit PO QAM RF: 0 omega 8-[id number]-lcx-fish oil [Fish Oil] 1,000 mg (120 mg-180 mg) Capsule 1 cap PO HS RF: 0 glyburide 2.5 mg Tablet 2.5 - 5 mg PO BID RF: 0 Discontinued aspirin [Aspir-81] 81 mg Tablet,Delayed Release (Dr/Ec) 81 mg PO QAM RF: 0 Discharge Orders: Discharge Order (Routine); Ordered 12/01/19 Ordered By: Vitor Daniel/Other Patient Handouts: Total Knee Replacement Admission Data Admit Date/Time: 11/29/19 09:43 Attending Provider: Satya Peterson Admit Provider: Satya Peterson Primary Care Provider: Maricruz Hernadez Other Providers: Roopa Miller ; Ryder Gaviria ; Ky Fernandez ; Brenda Fajardo ; Satya Reynaga ; Bj Josue ; Jose G Hernadez ; Carmen Ward ; Ava Damian ; Evelin Medina ; Saroj Edwards ; Mago Torres ; Kim Arreola ; Norman Kohli ; Coy Aguilar ; Justus Villalobos ; Dary Lennon ; Zoey Saldaña ; Gene Cotton ; Ryder Escalante ; Goran Mueller ; Emily Jeffery ; Patrica Jeffery ; Amos Siu ; Genesis Lei ; Sanchez Crow ; Alban Carreon ; Shahzad Easley ; [facility] Other Interventions: Discharge Summary Assessment (RN) Last Done: 12/01/19 09:54
[2019-12-01] MEDS ORDERED: LANTUS PER UNIT CHARGE SQ ONE (12:15)
== END 2019-12-01 12:10 | disposition home or self-care (01) ==
LOC: 3E 06:29 → ASU 06:29
DX: I25.10 Atherosclerotic heart disease of native coronary artery without angina pectoris; Z79.82 Long term (current) use of aspirin; Z68.31 Body mass index [BMI] 31.0-31.9, adult; E11.319 Type 2 diabetes mellitus with unspecified diabetic retinopathy without macular edema; Z79.890 Hormone replacement therapy; Z95.1 Presence of aortocoronary bypass graft; Z79.84 Long term (current) use of oral hypoglycemic drugs; E03.9 Hypothyroidism, unspecified; Z95.5 Presence of coronary angioplasty implant and graft; E66.9 Obesity, unspecified; E78.2 Mixed hyperlipidemia; Z79.899 Other long term (current) drug therapy; E78.5 Hyperlipidemia, unspecified; D62 Acute posthemorrhagic anemia; M17.12 Unilateral primary osteoarthritis, left knee